=== PATIENT | male | born 1950 ===

== ENCOUNTER 2021-10-27 05:56 | Observation (INO) ==
[2021-10-27] MEDS ORDERED: Buffered Lidocaine 1% SYRIN 1 ml INTRADERM ONE (06:00)
[2021-10-27] MEDS ORDERED: Lactated Ringers 1000 ml BAG 1,000 ML IV SCH ×2 (06:00→09:00)
[2021-10-27] MEDS ORDERED: ceFAZolin 2 GM in NS PREMIX 2 GM/100 ML BAG IVPB ONE (06:18)
[2021-10-27] MEDS ORDERED: Lidocaine 2% PF 5 ML VIAL ONE (07:11)
[2021-10-27] MEDS ORDERED: Phenylephrine IV 10 MG/ML 1 ml VIAL ONE (07:11)
[2021-10-27] MEDS ORDERED: ROPIVACAINE 5 MG/ML 30 ML BTL (0.5%) ONE ×2 (07:14)
[2021-10-27] MEDS ORDERED: Lidocaine 1% MPF 5 ML VIAL ONE (07:14)
[2021-10-27] MEDS ORDERED: Midazolam 2 mg/2 ml VIAL 1 mg/ml 2 ml VIAL (2 mg) ONE (07:21)
[2021-10-27] MEDS ORDERED: Morphine 2 MG/ML SYRINGE IV PRN (08:41)
[2021-10-27] MEDS ORDERED: Ondansetron ODT 4 mg TAB 4 MG TAB PO PRN (08:41)
[2021-10-27] MEDS ORDERED: Magnesium Hydroxide LIQ 30 ML UDC PO PRN (08:41)
[2021-10-27] MEDS ORDERED: Lactulose 30 ml UDC PO PRN (08:41)
[2021-10-27] MEDS ORDERED: Ondansetron 4 mg VIAL 2 MG/ML 2 ml VIAL IV PRN (08:41)
[2021-10-27] MEDS ORDERED: Magnesium Hydroxide LIQ 30 ML UDC PO SCH (09:00)
[2021-10-27] MEDS ORDERED: Vitamin THERAPEUTIC TAB PO SCH (09:00)
[2021-10-27] MEDS ORDERED: Propofol 10 MG/ML 20 ML BTL ONE ×2 (09:10→10:00)
[2021-10-27] MEDS ORDERED: oxyCODONE/Acetamin 5/325 mg TAB PO PRN (10:34)
[2021-10-27] MEDS ORDERED: Naloxone 0.4 mg VIAL 0.4 mg/ml 1 ml VIAL IV PRN (10:34)
[2021-10-27] MEDS ORDERED: HYDROmorphone 1 MG/1 ML SYRINGE IV PRN (10:34)
[2021-10-27] MEDS ORDERED: Dextran 70/Hypromellose Tears Eye Drops 15 ml BTL (for Artificials Tears) LEFT EYE PRN (11:01)
[2021-10-27] MEDS ORDERED: oxyCODONE/Acetamin 5/325 mg TAB ONE (11:29)
[2021-10-27 15:03] VITALS: BP 153/79
[2021-10-27] MEDS ORDERED: ceFAZolin 1 GM ADVAN 1 GM in NS 0.9% 50 ML 50 ML IVPB SCH (16:30)
== END 2021-10-27 17:15 | disposition home or self-care (01) ==
LOC: SSU 05:56 → OR 05:56
PROVIDERS: ADMIT Orthopaedic Surgery Adult Reconstructive Orthopaedic Surgery; ATTEND Orthopaedic Surgery Adult Reconstructive Orthopaedic Surgery